=== PATIENT | male | born 1980 | race Caucasian/White ===

== ENCOUNTER 2020-02-13 16:27 | Inpatient (IN) | payer SELFPAY ==
--- NOTE | ~2020-02-13 | XR_ITS ---
XR chest 1V portable 02/17/2020 12:56 Indication: Pacemaker insertion Procedure: AP portable chest Comparison: 02/13/2020 Findings: Heart size normal. Right lung clear. Left basilar infiltrates. No significant pleural effus ion or pneumothorax. No acute osseous abnormality. Impression: 1: Left basilar infiltrates, atelectasis versus pneumonia. Reviewed, dictated and finalized at location B. Impression: 1: Left basilar infiltrates, atelectasis versus pneumonia.
--- NOTE | ~2020-02-13 | XR_ITS ---
EXAMINATION: XR chest 2V DATE: 02/18/2020 07:50 INDICATION: Pacemaker insertion TECHNIQUE: PA and lateral views of the chest are obtained. COMPARISON: 02/17/2020 FINDINGS: Left basilar airspace opacities persist with slight improvement. There is no pleural effusi on or pneumothorax. The cardiomediastinal silhouette is normal. There is moderate thoracic spondylosi s. IMPRESSION: 1. Resolving left basilar airspace opacity, likely atelectasis. No pneumothorax. Reviewed, dictated and finalized at location A. IMPRESSION: 1. Resolving left basilar airspace opacity, likely atelectasis. No pneumothorax .
--- NOTE | ~2020-02-13 | XR_ITS ---
EXAMINATION: XR chest 2V DATE: 02/13/2020 17:52 INDICATION: Arrhythmia. TECHNIQUE: Frontal and lateral views of the chest were obtained. COMPARISON: None. FINDINGS: There is mild atelectasis at left lung base. No pleural effusion or pneumothorax. The heart size is normal. Surgical clips in the right upper quadrant are likely from cholecystectomy. IMPRESSION: 1. Mild atelectasis at left lung base. Reviewed, dictated and finalized at location A.
[2020-02-13 16:35] VITALS: BP 131/88; PULSE 72; RESP 18; TEMP 36.2; O2SAT 100
--- NOTE | 2020-02-13 16:39 | ECG_ITS ---
Measurements Intervals [place] Rate: 70 P: 50 UT: 224 QRS: -7 QRSD: 109 T: 67 QT: 367 QTc: 396 Interpretive Statements SINUS RHYTHM WITH FIRST DEGREE AV BLOCK BASELINE WANDER- II, III, AVF, V3 ABNORMAL ECG Electronically Signed On 02-13-2020 16:45:56 CDT by Ulysses Guardado D.O.
[2020-02-13 16:47] LABS: Basophils Percent Auto 0.8 % (0.2-1.2); Eosinophils Absolute Auto 0.1 K/mm3 (0-0.3); Eosinophils Percent Auto 1.7 % (0-4.4); Hematocrit 46.2 % (42.0-52.0); Hemoglobin 16.4 g/dL (14.0-18.0); Immature Granulocyte Absolute 0.01 K/mm3 (0.00-0.031); Immature Granulocyte Percent A 0.2 % (0-0.5); Lymphocytes Absolute Auto 1.31 K/mm3 (0.9-3.2); Lymphocytes Percent Auto 25.2 % (18.3-44.2); Mean Corpuscular HGB Conc 35.5 g/dl (32-36); Mean Corpuscular Hemoglobin 29.8 pg (26-34); Mean Corpuscular Volume 83.8 fl (80-100); Monocytes Absolute Auto 0.6 K/mm3 (0.1-0.6); Monocytes Percent Auto 10.8 % (2.6-8.5); Neutrophils Absolute Auto 3.2 K/mm3 (1.3-6.7); Neutrophils Percent Auto 61.3 % (45.5-73.1); Platelet Count Result 171 k/mm3 (150-375); Red Blood Count 5.51 M/mm3 (4.6-6.20); Red Cell Distribution Width 13.1 % (11.5-14.5); White Blood Count 5.2 K/mm3 (4.5-10.0)
[2020-02-13 16:56] LABS: Prothrombin Time 12.7 Seconds (11.1-14.7)
[2020-02-13 16:57] LABS: Partial Thromboplastin Time 30.4 SECONDS (22.3-36.8)
[2020-02-13 16:58] LABS: Blood Urea Nitrogen 11 mg/dL (9-20); Calcium 9.3 mg/dL (8.4-10.2); Carbon Dioxide 28 mmol/L (22-30); Chloride 105 mmol/L (98-107); Estimated CRCL calculation 138 ml/min; Estimated Glomerular Filt Rate > 60; Glucose 85 mg/dL (75-110); Sodium 140 mmol/L (137-145)
[2020-02-13 17:09] LABS: Troponin I < 0.012 ng/mL (0.000-0.034)
[2020-02-13 20:00] VITALS: BP 126/78; PULSE 57; PULSE 63; RESP 16; RESP 17; O2SAT 97; O2SAT 98
--- NOTE | 2020-02-13 20:14 | ED.ARRPALP ---
HPI - Arrhythmia/Palpitations General Chief Complaint: Arrhythmia/Palpitations Stated Complaint: abnormal heart rhythm per his doctor Time Seen by Provider: 02/13/20 20:02 Source: patient Mode of arrival: ambulatory Limitations: no limitations History of Present Illness HPI narrative: This patient is a 39 year old male who presents for evaluation of abnormal heart rhythm. He states he had a holter monitor placed last for evaluation palpitations. He states for the past 3 week he has palpitations with constant chest pressure. He states he has dizziness intermittently. He was called by a cardiac monitoring company today, and he was told to come to ER to be evaluated . He was told that his heart stopped for 8 seconds last night. He denies passing out. He denies taking any medications. 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 complaint: skipped beats Duration: intermittent Related Data Home Medications Medication Instructions Recorded Confirmed No Home Medications 02/13/20 02/13/20 Allergies Allergy/AdvReac Type Severity Reaction Status Date / Time No Known Allergies Allergy Verified 02/13/20 20:04 Review of Systems Review of Systems: All systems reviewed & are unremarkable except as noted in HPI and below Constitutional: Constitutional: Denies chills ENT: Denies nasal congestion and Denies sore throat Cardiovascular: Cardiovascular: Reports chest pain and Denies radiating jaw, neck or arm pain Respiratory: Respiratory: Denies cough, Denies dyspnea and Denies wheezing Gastrointestinal: Gastrointestinal: Denies abdominal pain, Denies diarrhea, Denies nausea and Denies vomiting PMFSH Past Medical History Medical History (Updated 02/14/20 @ 05:32 by Janneth Bryant MD) Patient denies medical problems Surgical History Surgical History (Updated 02/13/20 @ 20:34 by Janneth Bryant MD) No significant past surgical history Family History Family History (Updated 02/13/20 @ 22:56 by Kasey Oconnor RN) Mother Acute myocardial infarction Father Acute myocardial infarction Grandparent Acute myocardial infarction Social History Social History (Updated 02/13/20 @ 20:34 by Janneth Bryant MD) Smoking status: Former smoker Tobacco type: cigarettes Additional smoking assessment comments: quit smoking 5 years ago Alcohol intake: current Substance use: former Substance use type: former substance user, marijuana, amphetamines, opiates, painkillers, methamphetamine and prescription drug Last use: quit using illegal drugs 5 years ago Gender identity (if verbalized by the patient): Male Spiritual care concerns: No Exam Narrative: Exam Narrative: GENERAL: Well-appearing, well-nourished, and in no acute distress. HEAD: Normocephalic, atraumatic EYES: PERRLA and EOMI, conjunctiva clear without discharge THROAT:Mucous membranes moist, NECK: Supple, RESPIRATORY: No respiratory distress, Airway patent, Respirations non-labored, Clear to auscultation without rales, rhonchi or wheeze HEART: Regular rate and rhythm. No murmur heard. Normal peripheral pulses. ABDOMEN: Soft, nontender, nondistended, normal active bowel sounds. No masses. No rebound or guarding, No organomegaly. EXTREMITIES: No edema, normal strength with full range of motion. SKIN: Warm, dry, normal color without rash NEURO: Alert and oriented x3. CN 2-12 grossly intact. No focal deficits. PSYCH: Normal mood and affect. Course Consultations Consultation #1: I discussed case with Dr Brooks Valdez who states they will consult with cardiology consult. I am awaiting strip from holter [facility] Date: 02/13/20 Time: 20:30 Consultation #2: She accepts patient to IMU Date: 02/13/20 Time: 20:52 Vital Signs Vital signs: Vital Signs Temperature 97.1 F L 02/13/20 16:35 Pulse Rate 72 02/13/20 16:35 Respiratory Rate 18 02/13/20 16:35 Blood Pressure 131/88 02/13/20 16:35 Pulse O
[2020-02-13 20:30] VITALS: BP 123/73; PULSE 54; RESP 16; O2SAT 97
[2020-02-13 20:31] LABS: Magnesium 2.1 mg/dL (1.6-2.3)
[2020-02-13] MEDS: ASPIRIN 81 MG CHEWABLE TABLET 324 MG PO (20:31)
[2020-02-13 20:43] LABS: Troponin I < 0.012 ng/mL (0.000-0.034)
[2020-02-13 21:55] VITALS: BP 136/88; PULSE 63; RESP 18; TEMP 36.1; O2SAT 99
[2020-02-13 21:59] VITALS: BMI 35.2
[2020-02-13 22:00] VITALS: PULSE 46
--- NOTE | 2020-02-13 22:46 | ADMGEN ---
This patient, William Orantes, was admitted to IMU Room 210-01. Patient/family oriented to hospital policies and general routines including ID bracelet, bed and alarms, visiting hours, pain management, procedures, bathroom and other care routines, personal items, smoking policy, room service/diet, and visiting hours. Valuables list has been completed. Information on how to activate the Rapid Response Team has been discussed. Patient/Family are encouraged to report perceived risks to care and to ask questions if they do not understand what they are told or what they should do.
[2020-02-13 23:30] LABS: Troponin I < 0.012 ng/mL (0.000-0.034)
[2020-02-13 23:44] VITALS: PULSE 63; RESP 18; O2SAT 99
[2020-02-14] VITALS (16 sets, daily range): BP systolic 111–122; BP diastolic 58–78; PULSE 45–80; RESP 18–20; TEMP 36.4–36.7; O2SAT 96–99
--- NOTE | 2020-02-14 | ECHO_ITS ---
Patient Info Name: William Orantes Age: 39 years : 1980 Gender: Male Ht: 71 in Wt: 252 lbs BSA: 2.43 m2 HR: 54 bpm BP: 119 / 73 mmHg Technical Quality: Good Exam Date: 02/14/2020 12:08 PM Exam Location: [facility] Pul[facility] Patient Status: Inpatient Admit Date: 02/13/2020 Staff Ordering Physician: Alex Pina MD Religious Studies Professor: Osvaldo Hooper RDCS, RT Attending Provider: Denisa Greenwood DO Exam Type: CA echo doppler color flow Study Info Indications R00.1 - Bradycardia, unspecified Complete two-dimensional, color flow and Doppler transthoracic echocardiogram is performed. Summary 1. Left ventricular chamber size, wall thickness, systolic and diastolic function are normal with no regional wall motion abnormalities with an estimated ejection fraction of 60-65%. Global longitudinal strain was -18%, consistent with normal systolic function. 2. No significant valve disease. 3. Normal sinus rhythm with mild bradycardia, heart rate in the 50s. Left Ventricle Left ventricular chamber dimension is normal. Left ventricular systolic function is normal, estimated at 60-65%. There is no increased left ventricular wall thickness. Left ventricular septal wall motion is normal. The left ventricular diastolic function is normal. Left ventricular chamber size, wall thickness, systolic and diastolic function are normal with no regional wall motion abnormalities with an estimated ejection fraction of 60-65%. Global longitudinal strain was -18%, consistent with normal systolic function. Right Ventricle Right ventricular chamber dimension is normal. Right ventricular systolic function is normal. Left Atria Left atrial chamber dimension is normal. Right Atria Right atrial chamber dimension is normal. Aortic Valve The aortic valve is trileaflet. There is no aortic valve sclerosis. There is no aortic valve stenosis. There is no aortic valve regurgitation. Pulmonic Valve The pulmonic valve is normal. There is no pulmonic valve stenosis. There is trace pulmonic regurgitation. Mitral Valve The mitral valve has normal leaflets. There is no mitral valve stenosis. There is no mitral valve regurgitation. Tricuspid Valve The tricuspid valve leaflets are normal. There is no significant tricuspid valve stenosis. There is trace tricuspid valve regurgitation. No pulmonary hypertension, estimated pulmonary arterial systolic pressure is Empty. Pericardium/Pleural The pericardium appears normal. There is no pericardial effusion. Inferior Vena Cava Normal inferior vena cava with >50% collapse upon inspiration consistent with Empty right atrial pressure, Empty. Aorta The aortic root size at the sinus of Valsalva is normal. The prox ascending aorta size is normal. Left Ventricular Outflow Tract Name Value Normal LVOT 2D LVOT Diameter 2.0 cm LVOT Doppler LVOT Peak Gradient 3 mmHg LVOT Mean Gradient 2 mmHg LVOT VTI 19 cm LVOT VTI/AV VTI Ratio 0.7 LVOT Stroke Volume
--- NOTE | 2020-02-14 08:53 | ECG_ITS ---
Measurements Intervals [place] Rate: 51 P: 45 CT: 249 QRS: -4 QRSD: 98 T: 67 QT: 436 QTc: 405 Interpretive Statements SINUS BRADYCARDIA WITH FIRST DEGREE AV BLOCK ABNORMAL ECG Electronically Signed On 02-14-2020 9:07:40 CDT by Ulysses Guardado D.O.
--- NOTE | 2020-02-14 09:50 | PM.CNCAR ---
Assessment and Plan Assessment and plan (1) Sinus pause: Code(s): I45.5 - Other specified heart block Status: Acute Assessment and Plan: 39-year-old male with no known prior cardiac history presented to [facility] with 3 week history of shortness of breath, generalized fatigue, chest pressure. He was recently hospitalized in [place] on 02/10/2020 with similar complaints, apparently had treadmill nuclear stress test which was negative as per patient, and was discharged home on 30 day ambulatory school lunch monitor. His ambulatory school lunch monitor on my personal evaluation showed 8 second pause. On telemetry here at [facility], he is in sinus bradycardia with heart rates in late 30s to 40s and 50s with pauses up to 3 seconds last night. Patient has not been on any AV william blocking agents. 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 He has been experiencing symptoms of shortness of breath, chest pressure, and headache. Check COVID-19 PCR. Appropriate contact isolation per protocol. -echocardiogram with Doppler will be performed to assess LV function and rule out any major structural heart disease. -if no secondary causes for patient's bradyarrhythmia are seen, then may need permanent pacemaker placement for symptomatic bradyarrhythmia. -the management plan was discussed with the patient and he is in agreement with the above. History of Present Illness History of Present Illness Consult date/time: 02/14/20 09:50 Date of consult-02/14/2020 Reason for consult: Pause Requesting physician:Dr Bryant Chief complaint: Shortness of breath, generalized fatigue x3 weeks HPI: 39-year-old male with no known prior cardiac history presented to [facility] emergency room on 02/13/2020 with complaints of abnormal heart rhythm . 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 He reports that he has been having generalized fatigue and shortness of breath for about 3 weeks. He also reports some discomfort in the chest which she described as pinching sensation when he gets short of breath. Denies any fever or chills. He complains of headache. Patient does not recall any exposure to any recent COVID-19 patient, however, he states that he travels a lot and may have gotten exposed. He states that he went to [facility] in [place] on 02/10/2020 with these symptoms. Patient states that he had what he described as treadmill nuclear stress test which according to patient was unremarkable. Patient states that he was also found to have slow heart rate, and was discharged home on a 30 day ambulatory school lunch monitor. He states that he got a phone call yesterday from the school lunch monitor company and was told that he had an 2nd pause on the monitor. At that time, patient was driving in the local area, and presented to [facility]. Patient denied any syncope, he has been experiencing episodes of dizziness. Patient denies any prior history of bradyarrhythmia. He denies any known history of Lyme disease or tick bites. He reports some weight gain in the last few months. Denies constipation. Denies any history of thyroid disease. EKG on this admission which I personally evaluated shows sinus rhythm with first-degree AV block. Subsequent EKG did not show any significant changes. Serial troponins are negative. Two pages of the ambulatory school lunch monitor which was placed on 02/08/2020 show sinus rhythm/sinus bradycardia with 8 second pause. On telemetry he had at [facility], patient has been in sinus bradycardia with heart rate in late 30s to 40s and 50s and had 2 pauses up to 3 seconds at 1:06 a.m. a.m. and 1:17 a.m. last night. Chest x-ray showed mild atelectasis at left lung base. Reason For Visit: sinus pause Review of Systems Constitutional: Constit
--- NOTE | 2020-02-14 10:48 | PM.IMHP ---
H&P: HPI History of Present Illness Chief complaint: sinus pause Narrative: Date of visit 02/13 1020. William Orantes is a 39 year old male to the emergency room with informed that his Holter monitor recorded an 8 second pause. He has had no syncope. Occurred while he was sleeping. 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 There apparently had an echo and nuclear stress test with no abnormalities found and discharged with the 30 day event Holter. Both parents have had coronary artery disease. Smokes marijuana but not cigarettes. 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 He has no excessive snoring and never fallen asleep while driving. Review of Systems Review of Systems: Narrative: General appetite good has gained 20 lb since driving a truck the last 6 months no fever no chills no cough Eye no double vision scotoma Mouth no pharyngitis laryngitis Pulmonary no ongoing shortness breath wheezing or asthma or cough CV as above no pedal edema GI no melena hematochezia diarrhea constipation frequency and urgency at times with urination Muscle skeletal no particular joint discomfort Neuropsych no seizures no syncope has had drug abuse issues in the past some 5 years ago [facility] Past Medical History Medical History (Updated 02/14/20 @ 10:56 by Trino England MD) Patient denies medical problems Surgical History Surgical History (Updated 02/14/20 @ 10:31 by Alex Pina MD) History of cholecystectomy Family History Family History (Updated 02/14/20 @ 11:00 by Trino England MD) Mother , Age 49 Acute myocardial infarction Father Acute myocardial infarction Grandparent Acute myocardial infarction Social History Social History (Updated 02/14/20 @ 11:01 by Trino England MD) Social History: 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 Smoking status: Former smoker Tobacco type: cigarettes Additional smoking assessment comments: quit smoking 5 years ago Alcohol intake: current Substance use: former Substance use type: former substance user, marijuana, amphetamines, opiates, painkillers, methamphetamine and prescription drug Last use: quit using illegal drugs 5 years ago Gender identity (if verbalized by the patient): Male Spiritual care concerns: No Meds Home Medications and Allergies Home Medications Medication Instructions Recorded Confirmed Type No Home Medications 02/13/20 02/13/20 History Allergies Allergy/AdvReac Type Severity Reaction Status Date / Time No Known Allergies Allergy Verified 02/13/20 20:04 Vital Signs Vital Signs - 24 hr 02/13/20 16:35 02/13/20 20:00 02/13/20 20:30 Temperature 36.2 C L Pulse Rate 72 63 54 L Respiratory Rate 18 17 16 Blood Pressure 131/88 126/78 123/73 Pulse Oximetry 100 97 97 02/13/20 21:55 02/13/20 22:00 02/13/20 23:44 Temperature 36.1 C L Pulse Rate 63 46 L 63 Respiratory Rate 18 18 Blood Pressure 136/88 Pulse Oximetry 99 99 02/14/20 00:00 02/14/20 02:00 02/14/20 04:00 Temperature 36.6 C 36.7 C Pulse Rate 48 L 46 L 80 Respiratory Rate 20 18 Blood Pressure 122/75 118/66 Pulse Oximetry 96 99 02/14/20 05:50 02/14/20 07:44 02/14/20 08:00 Temperature 36.6 C Pulse Rate 46 L 53 L 54 L Respiratory Rate 20 20 Blood Pressure 120/78 Pulse Oximetry 99 99 02/14/20 10:00 Temperature Pulse Rate 57 L Respiratory Rate Blood Pressure Pulse Oximetry Exam Narrative: Exam Narrative: Blood pressure 120/78 pulse is 56 irregular afebrile saturating 97% on room air Pupils equal reactive light sclera anicteric Mouth normal with dentures and not removed Neck supple no adenopathy thyromegaly carotid bruits Lungs clear CV regular rate rhythm no murmurs or gallops Abdomen
[2020-02-14 19:09] LABS: SARS-CoV-2 RNA PCR Negative
[2020-02-15] VITALS (13 sets, daily range): BP systolic 107–137; BP diastolic 52–78; PULSE 42–84; RESP 16–20; TEMP 36.6–36.9; O2SAT 95–100
[2020-02-15] MEDS: ACETAMINOPHEN 325 MG TABLET 650 MG PO (09:36)
--- NOTE | 2020-02-15 17:13 | P.PNIM_ITS ---
Progress Note: A&P Assessment and Plan (1) Sinus pause: Code(s): I45.5 - Other specified heart block Status: Acute Assessment and Plan: Patient has been seen by Cardiology and has documented pauses. Apnea link AHI only 2 with no hypoxa TSH normal and COVID negative. . probably need permanent pacer. 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 Avoid opiates which was his drug of choice Subjective Date/time seen: 02/15/20 17:13 Interval history: Date of visit 02/14. 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 He had no lightheadedness just an unusual sensation in his chest and no history of syncope. Documented 2nd pause on monitor. Continues to have 2-3 second pauses at night here. Exam Narrative: Exam Narrative: Blood pressure 108/52 pulse is 68 afebrile saturating 97% on room air Pupils equal reactive light sclera anicteric Mouth normal with dentures and not removed Neck supple Lungs clear CV regular rate rhythm no murmurs or gallops Abdomen soft nontender no masses Extremities without edema distal pulses are 2+ Neuro alert pleasant cooperative no focal deficits Integument no cyst giving down rashes Objective Data Vital Signs Vital Signs: Vital Signs - 24 hr 02/14/20 18:00 02/14/20 19:48 02/14/20 20:00 Temperature 36.6 C Pulse Rate 63 68 64 Respiratory Rate 18 18 Blood Pressure 112/58 L Pulse Oximetry 97 97 02/14/20 22:00 02/14/20 23:20 02/14/20 23:34 Temperature 36.7 C Pulse Rate 58 L 58 L 46 L Respiratory Rate 20 20 Blood Pressure 117/74 Pulse Oximetry 98 98 02/15/20 02:00 02/15/20 03:49 02/15/20 05:42 Temperature Pulse Rate 42 L 46 L 51 L Respiratory Rate 20 Blood Pressure Pulse Oximetry 98 02/15/20 08:00 02/15/20 10:00 02/15/20 10:34 Temperature 36.6 C Pulse Rate 57 L 59 L Respiratory Rate 18 Blood Pressure 125/68 Pulse Oximetry 97 97 02/15/20 12:00 02/15/20 16:00 Temperature 36.9 C 36.6 C Pulse Rate 57 L 68 Respiratory Rate 18 16 Blood Pressure 137/78 107/52 L Pulse Oximetry 97 100 Intake/Output Intake/Output: Intake & Output 02/12/20 02/13/20 02/14/20 02/15/20 23:59 23:59 23:59 23:59 Intake Total 650 Output Total 400 Balance 250 Meds/Results Medications: Active Medications Generic Name Dose Route Start Last Admin Trade Name Freq PRN Reason Stop Dose Admin Acetaminophen 650 mg 02/15/20 08:07 02/15/20 09:36 Tylenol Tablet PO 650 mg Q6H PRN Administration Mild Pain (1-3) or Fever Radiology Results: ITS Impressions Chest X-Ray 02/13/20 17:53 IMPRESSION: 1. Mild atelectasis at left lung base. Labs Labs: Laboratory Results - last 24 hr 02/14/20 11:09 SARS-CoV-2 RNA (RT-PCR) [place]
--- NOTE | 2020-02-15 20:41 | PM.PNCARD ---
Progress Note: A&P Assessment and Plan (1) Sinus pause: Code(s): I45.5 - Other specified heart block Status: Acute Assessment and Plan: 39-year-old male with no known prior cardiac history presented to [facility] with 3 week history of shortness of breath, dizzy spells,generalized fatigue, chest pressure. He was recently hospitalized in [place] on 02/10/2020 with similar complaints, had treadmill nuclear stress test which was negative , and was discharged home on 30 day ambulatory manager cardiac cath. His ambulatory manager cardiac cath on my personal evaluation showed 8 second pause. On telemetry here at [facility], he is in sinus bradycardia with heart rates in late 30s to 40s and 50s with pauses up to 3-3.4 seconds.. Patient has not been on any AV william blocking agents. 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 He has sinus node dysfunction and has some symptoms of dizziness. I recommended placement of a permanent dual-chamber pacemaker. I have reviewed the procedure with the patient. Reviewed risks of pacemaker implant with patient. These include breathing problems, allergic reactions, bleeding, infection, pneumothorax, cardiac puncture, need for unanticipated surgery, lead dislodgement among others. Have offered to have it done while he is here at [facility], although because of a full schedule tomorrow it may not be implanted until Thursday. Another option would be to have a friend drive him back to [place] and have the percussion instrument tuner there implant it. He would prefer to have it done here to reduce the time off of work. He is in agreement that a pacemaker would be beneficial. 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 He was recently hospitalized in [place] for chest discomfort, shortness of breath, and dizzy spells. Echo showed normal LV function and Lexiscan showed no ischemia. He was discharged with a monitor, and 1 a showed an n8 second pause he was told to go to the nearest hospital. He is a straight truck driver and [facility] was the nearest hospital. Continues to have 2-3 second pauses at night here. Date of service 02/15/2020: Echo again showed normal LV function. TSH is normal. Apnea link showed no sleep apnea. Patient is feeling well but concerned about his job and his heart pauses. Review of Systems Constitutional: Constitutional: Reports no additional constitutional complaints Eyes: Eyes: Reports no additional eye complaints Cardiovascular: Cardiovascular: Reports chest pain and Reports lightheadedness ( Has had some lightheaded spells at home) Comments: occasional odd sensation in his chest Respiratory: Respiratory: Reports dyspnea ( some intermittent shortness of breath at home) Musculoskeletal: Musculoskeletal: Reports no additional musculoskeletal complaints Integumentary/Breasts: Skin/Breast: Denies rash Neurologic: Reports system reviewed and no additional complaints, except as documented Exam Const: General: comfortable and no acute distress HENMT: Mouth: Yes moist mucous membranes Eyes: Pupils: Equal, round and reactive pupils present Neck: Thyroid: thyroid normal Resp: Effort & Inspection: normal respiratory effort Cardio: Rate: regular rate Rhythm: regular rhythm GI: Inspection: non-distended Skin: General skin exam: normal color and no rashes or lesions noted Neuro: Speech: normal speech Motor exam (neuro): Normal motor muscle tone present throughout Extrem: General: no pedal edema Psych: Mental Status: mental status grossly normal Affect:
[2020-02-16] VITALS (18 sets, daily range): BP systolic 110–130; BP diastolic 63–76; PULSE 43–93; RESP 12–20; TEMP 35.7–36.8; O2SAT 94–99
--- NOTE | 2020-02-16 13:21 | PM.PNCARD ---
Progress Note: A&P Assessment and Plan (1) Sinus pause: Code(s): I45.5 - Other specified heart block Status: Acute Assessment and Plan: 39-year-old male with no known prior cardiac history presented to [facility] with 3 week history of shortness of breath, dizzy spells,generalized fatigue, chest pressure. He was recently hospitalized in [place] on 02/10/2020 with similar complaints, had treadmill nuclear stress test which was negative , and was discharged home on 30 day ambulatory pharmacy technologist. His ambulatory pharmacy technologist showed 8 second pause. On telemetry here at [facility], he is in sinus bradycardia with heart rates in late 30s to 40s and 50s with pauses up to 3-3.4 seconds. He has not been on any AV william blocking agents. Continue telemetry monitoring. Plan is for pacemaker tomorrow with Dr. Shelby He had a number of questions regarding pacemakers which were all answered. Subjective Date/time seen: 02/16/20 13:21 Interval history: Follow-up for: Sinus pauses. Documented 2nd pause on a outpatient monitor. Recently hospitalized in [place] for chest discomfort, shortness of breath, and dizzy spells. Date of service: 02/16/2020 Subjective: Denied any chest discomfort or dizzy spells. No shortness of breath. At times his heart feels odd. Review of Systems Constitutional: Constitutional: Denies chills, Reports fatigue, Denies fever(s) and Reports headache(s) Eyes: Eyes: Denies change in vision, Denies loss of vision and Denies eye pain ENT: Reports Normal hearing present, Reports headache(s), Denies lip swelling, Denies epistaxis and Denies sore throat Cardiovascular: Cardiovascular: Denies chest pain, Denies syncope, Reports lightheadedness ( Has had some lightheaded spells at home) and Reports dyspnea ( some intermittent shortness of breath at home) Respiratory: Respiratory: Denies cough, Reports dyspnea ( some intermittent shortness of breath at home) and Denies wheezing Gastrointestinal: Gastrointestinal: Denies abdominal pain, Denies melena, Denies nausea and Denies vomiting Musculoskeletal: Musculoskeletal: Denies myalgias, Denies muscle cramps and Denies muscle weakness Integumentary/Breasts: Skin/Breast: Denies pruritus and Denies rash Neurologic: Reports Normal hearing present, Denies behavioral changes, Denies syncope, Reports headache(s) and Denies loss of vision Psychiatric: Psychiatric: Denies anxiety, Denies behavioral changes and Denies depression Endocrine: Endocrine: Reports fatigue, Denies polydipsia and Denies polyuria Hematologic/Lymphatic: Hematologic/Lymphatic: Denies easy bleeding and Denies easy bruising Allergic/Immunologic: Allergic/Immunologic: Denies lip swelling and Denies wheezing Exam Narrative: Exam Narrative: Well-built male eating lunch. No distress. Const: General: comfortable, no acute distress, alert and awake HENMT: Head: normocephalic and atraumatic Ears: hearing grossly normal bilaterally and external ears normal General nose exam: Normal external nose present and no epistaxis Face and sinus: normal facial exam and no ecchymosis Mouth: Yes moist mucous membranes Eyes: Conjunctivae: conjunctivae normal Sclera: sclerae normal Pupils: Equal, round and reactive pupils present Neck: Neck: normal visual inspection and supple Resp: Effort & Inspection: normal respiratory effort and able to speak in complete sentences Auscultation: clear to auscultation bilaterally Cardio: Rate: bradycardic Rhythm: regular rhythm Heart sounds: S1 normal heart sound present, S2 normal heart sound present and no murmurs Peripheral pulses: Peripheral pulses 2+ throughout GI: Inspection: non-distended GI Palp: Yes Soft to palpation Auscultation: normal bowel sounds Skin: General skin exam: normal color and no rashes or lesions noted Other: no rash on exposed areas, no cyanosis Neuro: Cranial nerves: Yes Equal, round and reactive pupil
--- NOTE | 2020-02-16 16:36 | PM.IMPN ---
Progress Note: A&P Assessment and Plan (1) Sinus pause: Code(s): I45.5 - Other specified heart block Status: Acute Assessment and Plan: Patient has been seen by Cardiology and has documented pauses. Apnea link AHI only 2 with no hypoxa TSH normal and COVID negative. . 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 Avoid opiates which was his drug of choice Subjective Date/time seen: 02/16/20 16:36 Interval history: Date of visit 02/15. 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 He had no lightheadedness just an unusual sensation in his chest and no history of syncope. Documented 8 second pause on monitor. Continues to have 2-3 second pauses at night here. Exam Narrative: Exam Narrative: Blood pressure 118/70 pulse is 64 afebrile saturating 97% on room air Pupils equal reactive light sclera anicteric Mouth normal with dentures and not removed Neck supple Lungs clear CV regular rate rhythm no murmurs or gallops Abdomen soft nontender no masses Extremities without edema distal pulses are 2+ Neuro alert pleasant cooperative no focal deficits Objective Data Vital Signs Vital Signs: Vital Signs - 24 hr 02/15/20 18:00 02/15/20 19:49 02/15/20 22:00 Temperature 36.6 C Pulse Rate 53 L 44 L 53 L Respiratory Rate 20 Blood Pressure 128/73 Pulse Oximetry 95 02/15/20 23:23 02/16/20 00:00 02/16/20 02:00 Temperature 36.7 C Pulse Rate 49 L 44 L 89 Respiratory Rate 20 Blood Pressure 110/61 Pulse Oximetry 98 02/16/20 04:00 02/16/20 05:00 02/16/20 06:00 Temperature 36.6 C Pulse Rate 50 L 77 43 L Respiratory Rate 20 Blood Pressure 126/76 Pulse Oximetry 97 02/16/20 07:49 02/16/20 08:23 02/16/20 10:00 Temperature 35.8 C L Pulse Rate 55 L 60 56 L Respiratory Rate 12 Blood Pressure 110/63 Pulse Oximetry 98 02/16/20 11:50 02/16/20 12:00 02/16/20 14:00 Temperature 35.7 C L Pulse Rate 53 L 58 L 66 Respiratory Rate 12 Blood Pressure 125/73 Pulse Oximetry 99 02/16/20 16:00 Temperature 35.7 C L Pulse Rate 65 Respiratory Rate 12 Blood Pressure 118/69 Pulse Oximetry 99 Intake/Output Intake/Output: Intake & Output 02/13/20 02/14/20 02/15/20 02/16/20 23:59 23:59 23:59 23:59 Intake Total 650 1200 2130 Output Total 400 800 Balance 250 1200 1330 Meds/Results Medications: Active Medications Generic Name Dose Route Start Last Admin Trade Name Freq PRN Reason Stop Dose Admin Acetaminophen 650 mg 02/15/20 08:07 02/15/20 09:36 Tylenol Tablet PO 650 mg Q6H PRN Administration Mild Pain (1-3) or Fever Cefazolin Sodium 1 gm in 50 mls @ 100 mls/hr 02/17/20 09:00 Ancef 1 Gm/D5w 50 Ml Pm IVPB 02/17/20 09:29 ONCE ONE Radiology Results: ITS Impressions Chest X-Ray 02/13/20 17:53 IMPRESSION: 1. Mild atelectasis at left lung base.
[2020-02-17] VITALS (23 sets, daily range): BP systolic 91–145; BP diastolic 59–112; PULSE 50–76; RESP 12–20; TEMP 36.3–36.7; O2SAT 94–98
[2020-02-17 05:05] LABS: Basophils Percent Auto 0.8 % (0.2-1.2); Eosinophils Absolute Auto 0.1 K/mm3 (0-0.3); Eosinophils Percent Auto 1.9 % (0-4.4); Hematocrit 43.6 % (42.0-52.0); Hemoglobin 15.4 g/dL (14.0-18.0); Immature Granulocyte Absolute 0.01 K/mm3 (0.00-0.031); Immature Granulocyte Percent A 0.2 % (0-0.5); Lymphocytes Absolute Auto 1.82 K/mm3 (0.9-3.2); Lymphocytes Percent Auto 34.2 % (18.3-44.2); Mean Corpuscular HGB Conc 35.3 g/dl (32-36); Mean Corpuscular Volume 82.1 fl (80-100); Mean Platelet Volume 9.3 fl (7.4-10.4); Monocytes Absolute Auto 0.6 K/mm3 (0.1-0.6); Monocytes Percent Auto 11.8 % (2.6-8.5); Neutrophils Absolute Auto 2.7 K/mm3 (1.3-6.7); Neutrophils Percent Auto 51.1 % (45.5-73.1); Platelet Count Result 145 k/mm3 (150-375); Red Blood Count 5.31 M/mm3 (4.6-6.20); Red Cell Distribution Width 12.7 % (11.5-14.5); White Blood Count 5.3 K/mm3 (4.5-10.0)
[2020-02-17 05:10] LABS: INR 1.1; Prothrombin Time 13.7 Seconds (11.1-14.7)
[2020-02-17 05:16] LABS: Blood Urea Nitrogen 15 mg/dL (9-20); Carbon Dioxide 25 mmol/L (22-30); Chloride 107 mmol/L (98-107); Estimated CRCL calculation 160 ml/min; Estimated Glomerular Filt Rate > 60; Glucose 97 mg/dL (75-110); Potassium 3.6 mmol/L (3.4-5.0); Sodium 140 mmol/L (137-145)
--- NOTE | 2020-02-17 09:39 | WPDMODSED ---
Moderate Sedation Note-Pt Data Patient Data Diagnosis: Symptomatic sick sinus syndrome Present Complaint: Syncope Procedure to be performed/Plan: Permanent pacemaker implantation Allergies Allergy/AdvReac Type Severity Reaction Status Date / Time No Known Allergies Allergy Verified 02/13/20 20:04 Home Medications Medication Instructions Recorded Confirmed Type No Home Medications 02/13/20 02/13/20 History Current Medications: Active Medications Acetaminophen (Tylenol Tablet) 650 mg PO Q6H PRN PRN Reason: Mild Pain (1-3) or Fever Last Admin: 02/15/20 09:36 Dose: 650 mg Documented by: Sedation/Anesthesia: No previous sedation/anesthesia problems (including family history). 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 Smoking status: Former smoker Tobacco type: cigarettes Additional smoking assessment comments: quit smoking 5 years ago Alcohol intake: current Substance use: former Substance use type: former substance user, marijuana, amphetamines, opiates, painkillers, methamphetamine and prescription drug Last use: quit using illegal drugs 5 years ago Gender identity (if verbalized by the patient): Male Spiritual care concerns: No Mod Sed Physical Exam Physical Exam Pre Procedural Exam: Normal: Neck, Throat, Airway, Lungs, Heart Size, Heart Rate, Heart Rhythm, Neuro Exam and Extremities and Variation: Appearance (Obese white male no apparent distress) Hours since solid foods: 12 Hours since liquid intake: 12 Internal Medicine - PN: Obj Da Vital Signs Vital Signs: Vital Signs - 24 hr 02/16/20 10:00 02/16/20 11:50 02/16/20 12:00 Temperature 35.7 C L Pulse Rate 56 L 53 L 58 L Respiratory Rate 12 Blood Pressure 125/73 Pulse Oximetry 99 02/16/20 14:00 02/16/20 16:00 02/16/20 18:00 Temperature 35.7 C L Pulse Rate 66 60 55 L Respiratory Rate 12 Blood Pressure 118/69 Pulse Oximetry 99 02/16/20 19:49 02/16/20 20:00 02/16/20 22:00 Temperature 36.8 C Pulse Rate 93 59 L 54 L Respiratory Rate 20 Blood Pressure 120/72 Pulse Oximetry 94 02/16/20 23:01 02/16/20 23:40 02/17/20 02:00 Temperature 36.4 C Pulse Rate 54 L 55 L 50 L Respiratory Rate 18 Blood Pressure 130/76 Pulse Oximetry 97 02/17/20 03:55 02/17/20 04:00 02/17/20 06:00 Temperature 36.6 C Pulse Rate 62 54 L 52 L Respiratory Rate 16 Blood Pressure 91/59 L Pulse Oximetry 97 02/17/20 08:00 Temperature 36.4 C L Pulse Rate 56 L Respiratory Rate 14 Blood Pressure 102/59 L Pulse Oximetry 98 Intake/Output Intake/Output: Intake & Output 02/14/20 02/15/20 02/16/20 02/17/20 23:59 23:59 23:59 23:59 Intake Total 650 1200 2370 240 Output Total 400 800 Balance 250 1200 1570 240 Meds/Results Medications: Active Medications Generic Name Dose Route Start Last Admin Trade Name Freq PRN Reason Stop Dose Admin Acetaminophen 650 mg 02/15/20 08:07 02/15/20 09:36 Tylenol Tablet PO 650 mg Q6H PRN Administration Mild Pain (1-3) or Fever Radiology Results: ITS Impressions Chest X-Ray 02/13/20 17:53 IMPRESSION: 1. Mild atelectasis at left lung base. Labs CBC & Chem 7: 02/17/20 04:31 02/17/20 04:31 Labs: Laboratory Results - last 24 hr 02/17/20 02/17/20 02/17/20
--- NOTE | 2020-02-17 12:07 | ECG_ITS ---
Measurements Intervals Guys Rate: 56 P: 21 FL: 228 QRS: -2 QRSD: 94 T: 58 QT: 416 QTc: 404 Interpretive Statements SINUS BRADYCARDIA WITH FIRST DEGREE AV BLOCK ABNORMAL ECG Electronically Signed On 02-17-2020 13:08:47 CDT by Ulysses Guardado D.O.
--- NOTE | 2020-02-17 12:09 | WPDCARDPROC ---
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 A event monitor that was placed by a behavioral pediatrician in [place] where he lives has demonstrated evidence of significant sinus node dysfunction and asystolic pauses of over 8 seconds. In this setting implanting pacemaker device has been recommended Procedure Procedure performed:: implantation of permanent dual-chamber Biotronik pacemaker Sedation/Medication given:: fentanyl 50 mg Versed 2 mg case start time 11:14 a.m. case end time 11:58 a.m. sedation provided by Linda Gray RN, trained observer Access site:: left subclavian vein Estimated blood loss:: 15-20 cc Procedure note:: patient was brought to the catheterization lab in the postabsorptive state where the left anterior chest wall was prepared and draped in the usual sterile fashion. Anesthesia was provided inferior to the clavicle with 1% lidocaine infiltrated locally. incision was then made inferior to the clavicle from the midclavicular line to the deltopectoral groove and using sharp and blunt dissection the subcutaneous tissue was down to the level of the prepectoral fascia. Electrocautery was used to provide cutaneous hemostasis. Blunt dissection was then used to create a pacemaker pocket inferior to the incision along the fascial plane. After this attention was turned to venous access. The insertion kit with the safe sheaths provided was used to puncture the left subclavian vein twice and both J-tip guidewires were advanced into the venous circulation under fluoroscopic visualization to the level of the right atrium. The 2 6 Amharic peel-away safe sheaths were then used to place the leads detailed below into the venous circulation into the level of the right atrium. Attention was then turned to the ventricular lead. The status tile it was removed and I used a 3 cc syringe to perform a J-tip on the stylet and used that to steer the lead through the right ventricle out into the pulmonary artery. A straight stylet was placed back into the lead was withdrawn and placed into the right ventricular apical position. The fixation screw was deployed and lead was tested using the al eyes are with appropriate pacing and sensing performance being demonstrated and there was no evidence of any extracardiac stimulation with a 10 volts annulus. Attention was then turned to the atrial lead. The straight stylet was removed and a preformed J stylet was placed into the lead was then maneuvered into the right atrial appendage position. The fixation screw was deployed upon withdrawal of the stylet the lead tip was fixed into position. This was then tested using the analyzer with good pacing and sensing performance again being demonstrated. Once again a 10 volt stimulation showed no evidence of extracardiac stimulation. The leads were then secured to the base of the pocket using 2 0 silk ties and the supplied suture sleeves with the leads. Following this the leads were connected to the pacemaker generator using the torque wrench and the entire assembly was placed into the newly created pocket. Following this the pocket was irrigated with antibiotic infused saline and the skin was closed in layers. Three 0 Vicryl was used in interrupted fashion for the subcutaneous tissue and 4 0 Vicryl in a a running subcuticular fashion for the skin. The wound was dressed with an Aquacel dressing and the patient was taken to the holding area in stable condition there were no signs of any procedural complications. Procedure was well tolerated. Postop chest x-ray ECG antibiotics and analgesics were ordered. Findings:: Patient received a [employer]
[2020-02-17] MEDS: SODIUM CHLORIDE 0.9% IV 1,000 ML 50 ML IV CONT (13:35)
[2020-02-17] MEDS: ACETAMINOPHEN 325 MG TABLET 650 MG PO ×2 (17:22→23:31)
--- NOTE | 2020-02-17 17:26 | ECG_ITS ---
Measurements Intervals Fowler Rate: 67 P: 38 WA: 241 QRS: 18 QRSD: 95 T: 64 QT: 398 QTc: 422 Interpretive Statements SINUS RHYTHM WITH FIRST DEGREE AV BLOCK ABNORMAL ECG Electronically Signed On 02-18-2020 7:42:56 CDT by Ulysses Guardado D.O.
--- NOTE | 2020-02-17 17:45 | PM.IMPN ---
Progress Note: A&P Assessment and Plan (1) Sinus pause: Code(s): I45.5 - Other specified heart block Status: Acute Assessment and Plan: Patient has been seen by Cardiology and has documented pauses. Apnea link AHI only 2 with no hypoxa TSH normal and COVID negative. . 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 Avoid opiates which was his drug of choice Subjective Date/time seen: 02/17/20 17:45 Interval history: Date of visit 02/16. 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 He had no lightheadedness just an unusual sensation in his chest and no history of syncope. Documented 8 second pause on monitor. Continues to have 2-3 second pauses at night here. No new complaints Exam Narrative: Exam Narrative: Blood pressure 128/74 pulse is 64 afebrile saturating 97% on room air Pupils equal reactive light sclera anicteric Mouth normal with dentures and not removed Neck supple Lungs clear CV regular rate rhythm no murmurs or gallops Abdomen soft nontender no masses Extremities without edema distal pulses are 2+ Neuro alert pleasant cooperative no focal deficits Objective Data Vital Signs Vital Signs: Vital Signs - 24 hr 02/16/20 18:00 02/16/20 19:49 02/16/20 20:00 Temperature 36.8 C Pulse Rate 55 L 93 59 L Respiratory Rate 20 Blood Pressure 120/72 Pulse Oximetry 94 02/16/20 22:00 02/16/20 23:01 02/16/20 23:40 Temperature 36.4 C Pulse Rate 54 L 54 L 55 L Respiratory Rate 18 Blood Pressure 130/76 Pulse Oximetry 97 02/17/20 02:00 02/17/20 03:55 02/17/20 04:00 Temperature 36.6 C Pulse Rate 50 L 62 54 L Respiratory Rate 16 Blood Pressure 91/59 L Pulse Oximetry 97 02/17/20 06:00 02/17/20 08:00 02/17/20 10:00 Temperature 36.4 C L Pulse Rate 52 L 67 71 Respiratory Rate 14 Blood Pressure 102/59 L Pulse Oximetry 98 02/17/20 12:25 02/17/20 12:40 02/17/20 12:55 Temperature 36.7 C Pulse Rate 60 58 L 63 Respiratory Rate 12 17 18 Blood Pressure 119/76 117/80 128/83 Pulse Oximetry 96 98 94 02/17/20 13:10 02/17/20 13:30 02/17/20 13:40 Temperature Pulse Rate 59 L 66 68 Respiratory Rate 17 16 Blood Pressure 123/87 129/112 H Pulse Oximetry 94 95 02/17/20 14:00 02/17/20 14:10 02/17/20 15:10 Temperature Pulse Rate 66 66 69 Respiratory Rate 16 16 Blood Pressure 128/75 131/73 Pulse Oximetry 97 96 02/17/20 16:10 02/17/20 17:10 Temperature Pulse Rate 74 76 Respiratory Rate 16 16 Blood Pressure 145/66 H 136/63 Pulse Oximetry 96 96 Intake/Output Intake/Output: Intake & Output 02/14/20 02/15/20 02/16/20 02/17/20 23:59 23:59 23:59 23:59 Intake Total 650 1200 2370 530 Output Total 400 800 500 Balance 250 1200 1570 30 Meds/Results Medications: Active Medications Generic Name Dose Route Start Last Admin Trade Name Freq PRN Reason Stop Dose Admin Acetaminophen 650 mg 02/15/20 08:07 02/17/20 17:22 Tylenol Tablet PO 650 mg Q6H PRN Administration Mild Pain (1-3) or Fever Cefazolin Sodium 1 gm in 50 mls @ 100 mls/hr 02/17/20 19:00 02/17/20 17:22 Ancef 1 Gm/D5w 50 Ml Pm IVPB 02/18/20 03:29 100 mls/hr Q8H OSMAR Administration Sodium Chloride 1,000 mls @ 50 mls/hr 02/17/20 12:10 02/17/20 13:35 Normal Saline Iv IV CONT 02/17/20 20:11 50 mls/hr .Q20H OSMAR Administration Tramadol HCl 25 mg 02/17/20 13:41 02/17/20 14:02 Ultram PO 25 mg Q4H PRN Administration Pain Rated 4-6 Radiology Results: ITS Impressions Chest X-Ray 02/17/20 12:57 Impression: 1: Left basilar infiltrates, atelectasis versus pneumonia. Labs Labs: Laboratory Results - last 24 hr 02/17/20 02/17/20 02/17/20 04:31 04:31 04:31 WBC
[2020-02-18] VITALS (9 sets, daily range): BP systolic 115–126; BP diastolic 70–83; PULSE 50–83; RESP 16–18; TEMP 36.1–36.6; O2SAT 95–99
[2020-02-18] MEDS: ACETAMINOPHEN 325 MG TABLET 650 MG PO (09:40)
--- NOTE | 2020-02-18 10:27 | PM.PNCARD ---
Progress Note: A&P Additional Plan Bradyarrhythmia and s/p pacemaker dual chamber, CXR with no pneumothorax, no hematoma, instructions given to ptn, plan d/c and f/u in clinic with his security patrol officer in [place]. Subjective Date/time seen: 02/18/20 10:27 Interval history: seen for bradyarrhythmia and s/p pacemaker no acute events overnight Review of Systems Review of Systems: All systems reviewed & are unremarkable except as noted in HPI and below Exam Const: General: comfortable and no acute distress Neck: Neck: supple and no JVD Carotids: no bruits Resp: Effort & Inspection: normal respiratory effort Auscultation: clear to auscultation bilaterally and no crackles Cardio: Rate: regular rate Rhythm: regular rhythm Heart sounds: no murmurs Other: pacemaker site with no hematoma or tenderness Objective Data Vital Signs Vital Signs: Vital Signs - 24 hr 02/17/20 12:25 02/17/20 12:40 02/17/20 12:55 Temperature 36.7 C Pulse Rate 60 58 L 63 Respiratory Rate 12 17 18 Blood Pressure 119/76 117/80 128/83 Pulse Oximetry 96 98 94 02/17/20 13:10 02/17/20 13:30 02/17/20 13:40 Temperature Pulse Rate 59 L 66 68 Respiratory Rate 17 16 Blood Pressure 123/87 129/112 H Pulse Oximetry 94 95 02/17/20 14:00 02/17/20 14:10 02/17/20 15:10 Temperature Pulse Rate 66 66 69 Respiratory Rate 16 16 Blood Pressure 128/75 131/73 Pulse Oximetry 97 96 02/17/20 16:00 02/17/20 16:10 02/17/20 17:10 Temperature Pulse Rate 71 74 76 Respiratory Rate 16 16 Blood Pressure 145/66 H 136/63 Pulse Oximetry 96 96 02/17/20 18:00 02/17/20 18:10 02/17/20 19:52 Temperature 36.3 C L Pulse Rate 62 66 59 L Respiratory Rate 16 20 Blood Pressure 122/78 132/85 Pulse Oximetry 96 97 02/17/20 20:00 02/17/20 22:00 02/18/20 00:00 Temperature Pulse Rate 57 L 52 L 55 L Respiratory Rate Blood Pressure Pulse Oximetry 02/18/20 00:02 02/18/20 02:00 02/18/20 04:00 Temperature 36.1 C L Pulse Rate 57 L 50 L 51 L Respiratory Rate 18 Blood Pressure 126/83 Pulse Oximetry 95 02/18/20 04:27 02/18/20 06:00 02/18/20 08:06 Temperature 36.6 C 36.1 C L Pulse Rate 55 L 74 63 Respiratory Rate 18 16 Blood Pressure 124/70 115/73 Pulse Oximetry 95 99 Intake/Output Intake/Output: Intake & Output 02/15/20 02/16/20 02/17/20 02/18/20 23:59 23:59 23:59 23:59 Intake Total 1200 2370 1570 880 Output Total 800 775 250 Balance 1200 1570 795 630 Meds/Results Medications: Active Medications Generic Name Dose Route Start Last Admin Trade Name Freq PRN Reason Stop Dose Admin Acetaminophen 650 mg 02/15/20 08:07 02/18/20 09:40 Tylenol Tablet PO 650 mg Q6H PRN Administration Mild Pain (1-3) or Fever Tramadol HCl 25 mg 02/17/20 13:41 02/18/20 04:31 Ultram PO 25 mg Q4H PRN Administration Pain Rated 4-6 Radiology Results: ITS Impressions Chest X-Ray 02/18/20 08:00 IMPRESSION: 1. Resolving left basilar airspace opacity, likely atelectasis. No pneumothorax.
--- NOTE | 2020-02-18 16:57 | PM.DS ---
DS: Admitting Diagnosis Admitting Diagnosis Admitting Diagnosis: Other specified heart block DS: Discharge Diagnosis Discharge Diagnosis (1) Sinus pause: Code(s): I45.5 - Other specified heart block Status: Acute Assessment and Plan: Patient has been seen by Cardiology and has documented pauses. Apnea link AHI only 2 with no hypoxa TSH normal and COVID negative. . permanent pacer dual chamber placed 02/16 Pacemaker company rep checked a.m. 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 The pause was confirmed any had smaller pauses while here. Apnea link showed no evidence of sleep apnea with a AHI of only 2 and no hypoxia TSH was normal. 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 until seen by his hammerer helper Time Spent with Patient Time attestation: Total time spent providing and/or coordinating discharge services: 25 minutes Exam Narrative: Exam Narrative: Condition on discharge Blood pressure 114/62 pulse 62 and regular afebrile Lungs clear CV regular rate rhythm Abdomen soft nontender Extremities without edema distal pulses are 2+ Neuro alert cooperative no focal deficits Discharge Plan Discharge Attending physician on discharge: Trino England Consulting providers: ; John Cruz Discharging Clinician: Trino England Patient Disposition: Home, Self-Care Activity: other - see discharge instructions Diet: regular Discharge Instructions: CARDIOLOGY DISCHARGE INSTRUCTIONS ACTIVITY No driving until you are seen in the office for your incision check with your hammerer helper and are released to drive No lifting, pushing or pulling more than 5 pounds with left arm for 1 MONTH No lifting left arm above shoulder height for 1 MONTH Wear sling only if you are unable to remember the above activity restrictions. Recommend that it be worn at night. You are able to use both hands for usual activities of daily living with the 5 lb restriction. You may shower AFTER you are seen for incision check but no tub baths, swimming pool or hot tub for 1MONTH YOU ARE NOT RELEASED TO GO BACK TO WORK AND DRIVE A COMMERCIAL VEHICLE AT THIS TIME. THE LUMBER ESTIMATOR THAT WILL FOLLOW YOU LONG-TERM SHOULD DETERMINE YOUR ABILITY TO RETURN TO WORK. FOLLOW-UP: Follow-up with a hammerer helper at home within 1 week for dressing removal, incision check and pacemaker check. WOUND CARE: Do not attempt to remove dressing. There is a certain technique to removing this dressing. Keep dressing dry When you are able to shower AFTER you are seen for your incision check in the office do not rub or scrub the incision. Pat dry after shower. NO lotions, powders, creams or ointments are to be applied to the incision A small amount of tenderness, puffiness and bruising around the site is normal. Call if any significant pain, drainage, swelling, or redness around the site Patient Instructions: Antibiotic Form Stand Alone Forms: General Discharge Information Follow-up/Referrals: PHYSICIAN NOT ON STAFF,NONSTAFF [Primary Care Provider] - 1 Week Discharge Medications: No Action No Home Medications RF: 0 Date of admission: 0
== END 2020-02-18 11:45 | disposition home or self-care (01) | DRG 244 ==
LOC: ANHED 20:26 → ANHIMU 21:14
PROVIDERS: Emergency Medicine; Internal Medicine Cardiovascular Disease; Nurse Practitioner Adult Health; Specialist; Admitting Provider Internal Medicine; Emergency Provider General Practice; Visit Provider Internal Medicine
PROC: 0JH606Z Insertion of Pacemaker, Dual Chamber into Chest Subcutaneous Tissue and Fascia, Open Approach (ICD-10-PCS; CPT 33208; principal; 2020-02-17 09:30)
DX: I49.5 Sick sinus syndrome (principal); Z87.891 Personal history of nicotine dependence; F11.11 Opioid abuse, in remission; F12.11 Cannabis abuse, in remission; F15.11 Other stimulant abuse, in remission; Z20.828 Contact with and (suspected) exposure to other viral communicable diseases
CPT/HCPCS: 33208; 36415; 71045; 71046; 80048; 83735; 84443; 84484; 85025; 85610; 85730; 87635; 93005; 93306; 94762; 99285; A4565; A9270; C1779; C1785; C9803; G0378; J0690; J2250; J3010; J7030; J7040; U0003